=== PATIENT | female | born 1950 | race Caucasian/White ===

== ENCOUNTER 2016-10-10 11:34 | Emergency (ER) | payer MEDICAID, OTHER ==
[~2016-10-10] VITALS: Ht 165.1 cm; Wt 76.0 kg
[~2016-10-10 11:34] MED LIST: DOCU-144 PO; FLUT16SP17 NASAL; HYDR-3498 PO; LORA-186 PO; PROM6.25 PO; SMV40T PO
[2016-10-10 11:37] VITALS: Ht 165.1 cm; Wt 76.0 kg
[2016-10-10] MEDS ORDERED: FLUORESCEIN STRIP BOTH EYES ONE (12:30)
[2016-10-10] MEDS ORDERED: TETRACAINE 0.5% 4 ML OPH BOTH EYES ONE (12:30)
[2016-10-10] MEDS ORDERED: MINE3.5O30 BOTH EYES (13:04)
[2016-10-10] MEDS ORDERED: IBUP400T22 PO (13:07)
--- NOTE | 2016-10-10 14:04 | ERD ---
ER Documentation Chief Complaint Date/Time DATE: 10/10/16 TIME: 13:58 Chief Complaint rt eye pain since HPI This is a 66-year-old female with a history of hypertension and hypercholesterolemia who presents to the ED with bilateral eye pain. Patient was washing the dishes 3 days ago when the water glass fell to the sink and broken glass splashed to her face. Patient complains of tearing and pain upon extraocular movements. Denies any visual disturbances, headache or dizziness. Patient went to her PMD today and he advised her to go to the ED. Patient uses reading glasses. ROS All systems reviewed and are negative except as per history of present illness. Medications Home Meds Active Scripts Ibuprofen* (Motrin*) 400 Mg Tab, 400 MG PO Q6H Y for PAIN AND OR ELEVATED TEMP, #30 TAB Prov:LEDY HERNANDEZ 10/10/16 Mineral Oil/Petrolatum,White (ARTIFICIAL TEARS EYE OINT) 3.5 Gm Oint...g., 1 APPLIC BOTH EYES NEEDED Y for DRY EYES, #1 EA Prov:LEDY HERNANDEZ 10/10/16 Docusate Sodium* (Colace*) 100 Mg Capsule, 100 MG PO BID WITH MEALS, #30 CAP Prov:GUZMAN AGUIRRE DO 06/05/15 Hydrocodone Bit-Acetaminophen* ([place]*) 5-325 Mg Tab, 1 TAB PO Q6 Y for PAIN, # 10 TAB Prov:GUZMAN AGUIRRE DO 06/05/15 Loratadine* (Claritin*) 10 Mg Tablet, 10 MG PO DAILY, #30 TAB Prov:TRACY DAI PA-C 02/10/15 Promethazine w/Codeine* (Phenergan w/Codeine* Syrup) 5 Ml Syrup, 10 ML PO QHS Y for COUGH for 10 Days, ML Prov:TRACY DAI PA-C 02/10/15 Fluticasone Propionate* (Fluticasone Propionate* Nasal) 50 Mcg/Levels - 16 Gm Levels.susp, 1 SPRAY NASAL BID for 28 Days, EA TO EACH NOSTRIL Prov:TRACY DAI PA-C 02/10/15 Reported Medications Simvastatin (Simvastatin) 40 Mg Tablet, 40 MG PO HS, TAB 12/20/14 Allergies Allergies: Coded Allergies: No Known Allergy (Unverified , 05/19/14) PMhx/Soc Hx Neurological Disorder: No Hx Respiratory Disorders: No Hx Cardiac Disorders: Yes (HIGH CHOLESTEROL, HTN) Hx Psychiatric Problems: Yes (Anxiety) Hx Miscellaneous Medical Probl: No Hx Alcohol Use: No Hx Substance Use: No Hx Tobacco Use: No Physical Exam Vitals Vital Signs Date Time Temp Pulse Resp B/P Pulse Ox O2 Delivery O2 Flow Rate FiO2 10/10/16 11:37 98.7 89 18 137/65 99 Physical Exam Physical Exam CONST: Well-developed, well-nourished, in no acute distress. Nontoxic in appearance. HEENT: Atraumatic. Conjunctival injection present bilaterally. EOM intact. TM intact. External ear is normal. Clear oropharynx without erythema. No uvular deviation. Moist mucous membranes. Supple neck. No meningismus. No submandibular induration. RESP: Clear to auscultation bilaterally. No wheezing. CARDIO: Regular rate and rhythm, no murmurs. ABD: Soft, non tender, non distended. Normal bowel sounds. No McBurney's point tenderness. No guarding or rigidity. No peritoneal signs. SKIN: No petechiae or rashes. BACK: No midline or flank tenderness. EXT: No cyanosis or edema. Distal pulses equal and bilateral. NEURO: Awake and alert, appropriate for age. 5/5 strength in all extremities. Normal speech. Steady gait. Results 24 hrs Current Medications Medications (Trade) Dose Ordered Sig/Philipp Route PRN Reason Start Time Stop Time Status Last Admin Dose Admin Tetracaine HCl (Tetracaine 0.5% Steri-Unit Chyna) 1 drop ONCE ONCE BOTH EYES 10/10/16 12:30 10/10/16 12:31 DC Fluorescein Sodium (Hybfb-A-Vjwxw) 1 strip ONCE ONCE BOTH EYES 10/10/16 12:30 10/10/16 12:31 DC Procedures/MDM EMERGENCY DEPARTMENT COURSE/MEDICAL DECISION MAKING This is a 66-year-old who comes to the emergency room secondary to complaints of bilateral eye pain x3 days after several small broken glasses splashed to her face. Visual acuity, slit-lamp and fluorescein stain were ordered. 20/40 vision in the right and 20/30 vision in left. Slit-lamp exam is unremarkable. No fluorescein uptake was noted bilaterally. Case was discussed with Dr. Lorenzana and he reexamined patient. He retrieved a very small piece of broken glass on the left internal eyelid upon swabbing with a Q-tip. My primary diagnosis is eye injury. Differential diagnoses considered but not limited to corneal abrasion, foreign body, retinal detachment. Pt is hemodynamically stable upon reassessment. There are no new complaints during the ED course. The patient was discharged for outpatient management with a prescription for artificial tears and ibuprofen. Patient was instructed to see an road freight conductor and a reference list was given. The patient was advised to followup with their PMD in 1-2 days and to return to the Emergency Department if there are any new or worsening symptoms. The patient understood and agreed with the diagnosis, treatment and plan. Patient is stable for discharge at this time. Departure Diagnosis: Primary Impression: Eye injury Encounter type: initial encounter Laterality: bilateral Qualified Code: S05.91XA - Bilateral eye injuries, initial encounter Condition: Stable Patient Instructions: Corneal Injury Referrals: [facility] YOU HAVE RECEIVED A MEDICAL SCREENING EXAM AND THE RESULTS INDICATE THAT YOU DO NOT HAVE A CONDITION THAT REQUIRES URGENT TREATMENT IN THE EMERGENCY DEPARTMENT. FURTHER EVALUATION AND TREATMENT OF YOUR CONDITION CAN WAIT UNTIL YOU ARE SEEN IN YOUR DOCTORS OFFICE WITHIN THE NEXT 1-2 DAYS. IT IS YOUR RESPONSIBILITY TO MAKE AN APPOINTMENT FOR FOLOW-UP CARE. IF YOU HAVE A PRIMARY DOCTOR --you should call your primary doctor and schedule an appointment IF YOU DO NOT HAVE A PRIMARY DOCTOR YOU CAN CALL OUR PHYSICIAN REFERRAL HOTLINE AT IF YOU CAN NOT AFFORD TO SEE A PHYSICIAN YOU CAN CHOSE FROM THE FOLLOWING [facility] [address] [facility]. [facility] [address] [facility] [facility] [address] [facility] [facility] [address] [facility]. [facility] [address] [facility]. [facility]. [address] [facility] [place] Hours: Mon - Fri 9:00 AM - 5:00 PM Additional Instructions: seguimiento con un oftalmlogo. Llame a sam mdico de atencin primaria maana para hacer janie nancy jeet los pr ximos aguilar 1-2. Volver al Departamento de la emergencia inmediatamente si tiene cualquier s ntoma nuevo o que empeora. [place] todos los medicamentos omkar lo indique. LEDY HERNANDEZ October 10, 2016 14:04
== END 2016-10-10 13:26 | disposition home or self-care (01) ==
LOC: FTE 11:34
DX: S05.91XA Unspecified injury of right eye and orbit, initial encounter (principal); S05.92XA Unspecified injury of left eye and orbit, initial encounter; I10 Essential (primary) hypertension; W25.XXXA Contact with sharp glass, initial encounter; Y92.9 Unspecified place or not applicable
CPT/HCPCS: Z7502; Z7610; 99283